=== PATIENT | male | born 1955 | race Caucasian/White ===

== ENCOUNTER 2016-06-24 05:49 | Day surgery (SDC) | payer BC ==
[2016-06-23 10:40] VITALS: Ht 167.6 cm; Wt 75.0 kg
[~2016-06-24] VITALS: Ht 167.6 cm; Wt 75.0 kg
[2016-06-24] VITALS (10 sets, daily range): BP systolic 108–132; BP diastolic 58–68; PULSE 59–82; RESP 14–16
[2016-06-24] MEDS ORDERED: CARV3.12 PO (06:28)
[2016-06-24] MEDS ORDERED: PANT40TA4 PO (06:28)
[2016-06-24] MEDS ORDERED: SERT20OR2 PO (06:28)
[2016-06-24] MEDS ORDERED: GEMF600T60 PO (06:28)
[2016-06-24] MEDS ORDERED: TAMS0.4C2 PO (06:28)
[2016-06-24] MEDS ORDERED: SOD CHLORIDE 0.9% 1,000 ML IV ONE (07:00)
[2016-06-24] MEDS ORDERED: CEFAZOLIN 2 GM/50 ML (PMX) 50 ML IVPB ONE (07:30)
[2016-06-24] MEDS ORDERED: HYDROmorphONE 2 MG/ML SYG ONE (07:55)
[2016-06-24] MEDS ORDERED: MIDAZOLAM 1 MG/ML 2 ML INJ ONE (07:55)
[2016-06-24] MEDS ORDERED: PROPOFOL 20 ML ONE (07:55)
[2016-06-24] MEDS ORDERED: METOCLOPRAMIDE 10 MG INJ ONE (07:56)
[2016-06-24] MEDS ORDERED: BUPIVACAINE 0.25% (MPF) 30 ML INJ ONE (07:56)
[2016-06-24] MEDS ORDERED: ROCURONIUM 50 MG INJ ONE (07:56)
[2016-06-24] MEDS ORDERED: POLYMYXIN/BACITRACIN 1L IRRIG ONE (07:56)
[2016-06-24] MEDS ORDERED: CEFAZOLIN 1 GM INJ ONE (08:05)
[2016-06-24] MEDS ORDERED: ROPIVACAINE 0.5 % 30 ML VIAL ONE (08:16)
[2016-06-24] MEDS ORDERED: GLYCOPYRROLATE 0.4 MG INJ ONE (08:30)
[2016-06-24] MEDS ORDERED: KETOROLAC 30 MG INJ ONE (08:30)
[2016-06-24] MEDS ORDERED: NEOSTIGMINE 3 MG/3 ML SYRINGE ONE (08:30)
[2016-06-24] MEDS ORDERED: DIPHENHYDRAMINE 50 MG INJ IV PRN (09:00)
[2016-06-24] MEDS ORDERED: MEPERIDINE 25 MG INJ IV PRN (09:00)
[2016-06-24] MEDS ORDERED: OXYCODONE/ACETAMINOPHEN (5/325) TAB PO PRN ×2 (09:00)
[2016-06-24] MEDS ORDERED: HYDROmorphONE (0.2 MG/ML) 10ML SYG IV PRN ×3 (09:00)
[2016-06-24] MEDS ORDERED: METOCLOPRAMIDE 10 MG INJ IV PRN (09:00)
[2016-06-24] MEDS ORDERED: ONDANSETRON 4 MG INJ IV PRN (09:00)
[2016-06-24] MEDS ORDERED: HYDROCODONE/APAP (5/325) TAB PO ONE (09:30)
--- NOTE | 2016-06-24 09:52 | OPR ---
DATE OF OPERATION: 06/24/2016 INDICATION: This is a 60-year-old male with a right inguinal hernia. He requests surgical repair. Risks, alternatives, benefits, and personnel were discussed with the patient. Patient expresses un derstanding and consents to the operation. PREOPERATIVE DIAGNOSIS: Right inguinal hernia. POSTOPERATIVE DIAGNOSIS: Right inguinal hernia. OPERATION: Open right inguinal hernia repair with medium size Ultrapro hernia system mesh. SURGEON: Reese Kay MD SPECIMEN: None. COMPLICATIONS: None. ANESTHESIA: General. DESCRIPTION OF PROCEDURE: The patient was taken to the OR and prepped and draped in the usual steri le fashion. Surgical timeout was performed. IV antibiotics were given. Right inguinal oblique inc ision is made with a 10 blade. Dissection cautery was carried down to the external oblique fascia w hich was opened with a 15 blade. This incision is extended medial inferiorly and lateral superiorly with Metzenbaum scissors. Cord structures are encircled with a Lacey drain. Indirect hernia was identified, indirect hernia sac identified. The contents are examined. There is no evidence of an y sliding component. Suture ligation of the sac is performed with 0 Vicryl. This portion is affixe d to the disk portion of the UltraPro hernia system mesh. The disk portion is also secured in place with a running 0 Prolene from the pubic tubercle along the shelving edge of the inguinal ligament a nd superiorly to the internal oblique with interrupted 3-0 Vicryl. Onlay mesh was secured in a mamadou lar fashion with running 0 Prolene from the pubic tubercle along the shelving edge of the inguinal l igament. Straps are created and reapproximated with interrupted 0 Prolene to recreate the inguinal ring. The onlay mesh is secured to the internal oblique with interrupted 3-0 Vicryl. External obliq ue fascia is closed with a running 3-0 Vicryl. Tonie's is closed with interrupted 3-0 Vicryl. Ski n is closed with interrupted 3-0 Vicryl and running 4-0 Monocryl. Local anesthesia was injected. D ry dressings were applied. Dictated By: REESE BHATTI/RAUL Conf#: [id number] DID#: [id number]
== END 2016-06-24 10:36 | disposition home or self-care (01) ==
LOC: SDS 05:49
PROVIDERS: ATTEND Surgery
DX: K40.30 Unilateral inguinal hernia, with obstruction, without gangrene, not specified as recurrent (principal); I10 Essential (primary) hypertension; I25.10 Atherosclerotic heart disease of native coronary artery without angina pectoris; E78.5 Hyperlipidemia, unspecified
CPT/HCPCS: 49505; C1781; J0690; J1885; J2250; J2710; J2765; J2795; Z7512; Z7610; J1170